=== PATIENT | female | born 1940 | race Caucasian/White ===

== ENCOUNTER → 2025-02-13 | Outpatient (CLI) | payer MEDICARE, BC ==
--- NOTE | 2025-02-13 11:22 | XR ---
EXAMINATION TYPE: XR lumbosacral spine min 4V DATE OF EXAM: 02/13/2025 10:58 AM COMPARISON: None CLINICAL INDICATION: Female, 84 years old with history of [id number] LBP,FALL; YCH, pain TECHNIQUE: XR lumbosacral spine min 4V - Frontal, lateral , bilateral oblique and coned in L5-S1 late ral views of the spine. FINDINGS: No evidence of any acute osseous pathology. Compression deformity of the L1 vertebral body with up to 25% height loss.. There is normal alignment of the lumbar vertebral bodies. Mild scattered disc space narrowing. Multilevel marginal osteophyte formation throughout the visualized spine. Ther e is facet joint arthropathy throughout the spine. Scattered at least mild neural foraminal stenosis. Atherosclerosis of the arterial vasculature. IMPRESSION: 1. Wedge compression deformity of L1 with 25% height loss consider MRI to evaluate for acute bony bayron ma 2. Moderate multilevel disc degeneration. [facility], , 02/13/2025 11:20 AM
== END | disposition home or self-care (01) ==
LOC: RADXRYALE 10:38
PROVIDERS: ATTEND Physician Assistant
DX: M48.56XA Collapsed vertebra, not elsewhere classified, lumbar region, initial encounter for fracture (principal); M51.360 Other intervertebral disc degeneration, lumbar region with discogenic back pain only; Z91.81 History of falling
CPT/HCPCS: 72110